=== PATIENT | male | born 1960 | race Caucasian/White ===

== ENCOUNTER → 2020-05-10 | Outpatient (CLI) | payer SELFPAY | LOC: M LABSMTC 09:41 | PROVIDERS: ATTEND Pediatrics | DX: Z20.828 Contact with and (suspected) exposure to other viral communicable diseases (principal) ==

== ENCOUNTER → 2022-07-06 | Outpatient (CLI) | payer OTHER, SELFPAY | LOC: M SOG 08:39 | PROVIDERS: ATTEND Orthopaedic Surgery | DX: M54.50 Low back pain, unspecified (principal) ==

== ENCOUNTER 2022-07-27 15:28 | Inpatient (IN) | payer OTHER ==
[~2022-07-27] VITALS: Ht 180.3 cm; Wt 98.6 kg
[2022-07-27 16:40] VITALS: BP 114/76
[2022-07-27] MEDS ORDERED: LEVALBUTEROL 1.25MG 0.5ML CONCENTRATE NEB NEB PRN (18:25)
[2022-07-27] MEDS ORDERED: ACETAMINOPHEN TAB 650MG DOSE (2X325MG) PO PRN (18:25)
[2022-07-27] MEDS ORDERED: MOM 30ML SUSPENSION UDC PO PRN (19:05)
[2022-07-27 19:19] LABS: BASO # 0.1 10^3/uL (0.0-0.2); BASO % 0.5 % (0.0-1.0); HEMATOCRIT 25.1 % (42.0-52.0); HEMOGLOBIN 8.1 g/dl (13.5-17.5); LYMPH # 0.7 10^3/uL (1.5-5.0); LYMPH % 3.3 % (24.0-44.0); MEAN CORPUSCULAR HEMOGLOBIN 29.3 pg (27.0-33.0); MEAN CORPUSCULAR HGB CONC 32.3 g/dl (32.0-36.5); MEAN CORPUSCULAR VOLUME 90.9 fl (80.0-96.0); MONO # 1.4 10^3/uL (0.0-0.8); MONO % 6.6 % (2.0-8.0); NEUTROPHILS # 16.8 10^3/uL (1.5-8.5); NEUTROPHILS % 81.6 % (36.0-66.0); PLATELET COUNT, AUTOMATED 134 10^3/uL (150-450); RED BLOOD COUNT 2.76 10^6/uL (4.30-6.10); WHITE BLOOD COUNT 20.6 10^3/uL (4.0-10.0)
[2022-07-27] MEDS ORDERED: VANCOMYCIN HCL 1,000 MG, VIAL MATE ADAPTER 1 EACH in NS 250 ML IV SCH (19:30)
[2022-07-27 19:54] LABS: ALBUMIN 2.4 G/DL (3.2-5.2); ALKALINE PHOSPHATASE 227 U/L (46-116); ALT/SGPT 27 U/L (7.0-40); AST/SGOT 43 U/L (<34); BLOOD UREA NITROGEN 49 MG/DL (9-23); CALCIUM LEVEL 9.6 MG/DL (8.3-10.6); CARBON DIOXIDE LEVEL 26 MMOL/L (20-31); CHLORIDE LEVEL 95 MMOL/L (98-107); CREATININE FOR GFR 0.89 MG/DL (0.70-1.30); GLOMERULAR FILTRATION RATE > 60.0 (>49); GLUCOSE, FASTING 103 MG/DL (74-106); POTASSIUM SERUM 4.9 MMOL/L (3.5-5.1); SODIUM LEVEL 131 MMOL/L (136-145)
[2022-07-27 20:00] VITALS: BP 120/76
[2022-07-27 20:00] LABS: INR 1.31; PROTHROMBIN TIME 16.5 SECONDS (12.5-14.5)
[2022-07-27] MEDS ORDERED: CEFEPIME HCL 1 GM in D5W MINI-BAG PLUS 50 ML IV SCH (20:00)
[2022-07-27] MEDS: LEVALBUTEROL 1.25MG 0.5ML CONCENTRATE NEB NEB SCH (20:00)
[2022-07-27 20:01] LABS: PARTIAL THROMBOPLASTIN TIME 34.3 SECONDS (24.8-34.2)
[2022-07-27] MEDS ORDERED: PANT40TA29 PO (20:12)
[2022-07-27] MEDS ORDERED: LEVO112T2 PO (20:12)
[2022-07-27] MEDS ORDERED: LIDO1PAD TOP (20:12)
[2022-07-27] MEDS ORDERED: MORP-69 PO (20:12)
[2022-07-27] MEDS ORDERED: MIRA3350 PO (20:12)
[2022-07-27] MEDS ORDERED: DEXA4TA PO (20:12)
[2022-07-27] MEDS ORDERED: MILKSUS3 PO (20:12)
[2022-07-27] MEDS ORDERED: SIMV40TA20 PO (20:12)
[2022-07-27] MEDS ORDERED: IBUP80TA PO (20:12)
[2022-07-27] MEDS ORDERED: SENN-186 PO (20:12)
[2022-07-27] MEDS ORDERED: SODI1TAB12 PO (20:12)
[2022-07-27] MEDS ORDERED: DICL1GEL3 TOP (20:12)
[2022-07-27] MEDS ORDERED: MORP15TA2 PO (20:12)
[2022-07-27] MEDS ORDERED: FLUO1OPD OU (20:12)
[2022-07-27] MEDS ORDERED: CYCL-707 PO (20:12)
[2022-07-27] MEDS ORDERED: FLUO40CA PO (20:12)
[2022-07-27 20:17] LABS: IRON (FE) 63 UG/DL (65-175); PERCENT SATURATION 22.4 % (19.7-50.0); TOTAL IRON BINDING CAPACITY 281 UG/DL (250-425)
[2022-07-27] MEDS ORDERED: HOME MED LIST COMPLETE! XX SCH (20:20)
[2022-07-27 20:23] LABS: FERRITIN 2744.3 NG/ML (10.5-307.3)
[2022-07-27 20:37] LABS: D-DIMER QUANT > 4000 ng/ml (<500)
[2022-07-27] MEDS ORDERED: NS 1,000 ML IV SCH (20:50)
[2022-07-27] MEDS: SENNA 8.6 MG TAB (SENOKOT) PO SCH (21:00)
[2022-07-27] MEDS ORDERED: MORPHINE 15 MG SA TAB PO SCH (21:00)
[2022-07-27] MEDS: DOCUSATE SODIUM 100MG CAPSULE PO SCH (21:00)
[2022-07-27] MEDS: IBUPROFEN 800 MG TAB PO SCH (21:00)
[2022-07-27] MEDS: FLUOROMETHOLONE 0.1% OPHTH SUSP 5ML BTL OU SCH (21:00)
[2022-07-27] MEDS ORDERED: SIMVASTATIN 40 MG TAB PO SCH (21:00)
[2022-07-27] MEDS: NYSTATIN 500,000U/5ML SUSP UDC SS SCH (21:21)
[2022-07-27] MEDS: MORPHINE 30 MG TAB **MSIR PO PRN (21:21)
[2022-07-27] MEDS: SODIUM CHLORIDE 1 GM TAB PO SCH (21:21)
[2022-07-27] MEDS: HEPARIN SOD (PORCINE) 5000UNITS/ML 1ML VIAL/SYRINGE SQ SCH (21:22)
[2022-07-27] MEDS: CEFEPIME HCL 1 GM in D5W MINI-BAG PLUS 50 ML IV SCH (21:22)
[2022-07-27] MEDS ORDERED: VANCOMYCIN HCL 1,000 MG, VIAL MATE ADAPTER 1 EACH in NS 250 ML IV ONE ×2 (22:00→23:00)
[2022-07-27 23:35] VITALS: BP 112/71
[2022-07-28] VITALS: BP 118/74
[2022-07-28] MEDS: MORPHINE 30 MG TAB **MSIR PO PRN ×2 (00:56→05:03)
[2022-07-28 03:27] VITALS: BP 116/83
[2022-07-28 04:00] VITALS: BP 117/72
[2022-07-28] MEDS ORDERED: VANCOMYCIN HCL 750 MG, VIAL MATE ADAPTER 1 EACH in D5W 250 ML IV SCH ×2 (05:00→06:00)
[2022-07-28 05:29] LABS: HEMOGLOBIN 8.2 g/dl (13.5-17.5); MEAN CORPUSCULAR HEMOGLOBIN 29.1 pg (27.0-33.0); MEAN CORPUSCULAR HGB CONC 31.5 g/dl (32.0-36.5); MEAN CORPUSCULAR VOLUME 92.2 fl (80.0-96.0); PLATELET COUNT, AUTOMATED 126 10^3/uL (150-450); RED BLOOD COUNT 2.82 10^6/uL (4.30-6.10); WHITE BLOOD COUNT 20.2 10^3/uL (4.0-10.0)
[2022-07-28 05:57] LABS: ALBUMIN 2.4 G/DL (3.2-5.2); ALKALINE PHOSPHATASE 228 U/L (46-116); ALT/SGPT 28 U/L (7.0-40); AST/SGOT 46 U/L (<34); BILIRUBIN,TOTAL 1.3 MG/DL (0.3-1.2); BLOOD UREA NITROGEN 50 MG/DL (9-23); CALCIUM LEVEL 9.7 MG/DL (8.3-10.6); CARBON DIOXIDE LEVEL 25 MMOL/L (20-31); CHLORIDE LEVEL 95 MMOL/L (98-107); CREATININE FOR GFR 1.04 MG/DL (0.70-1.30); GLOMERULAR FILTRATION RATE > 60.0 (>49); GLUCOSE, FASTING 88 MG/DL (74-106); POTASSIUM SERUM 4.5 MMOL/L (3.5-5.1); SODIUM LEVEL 130 MMOL/L (136-145); TOTAL PROTEIN 5.9 G/DL (5.7-8.2)
[2022-07-28] MEDS ORDERED: LEVOTHYROXINE 112MCG TABLET (0.112MG) PO SCH (06:00)
[2022-07-28 07:47] VITALS: BP 104/64
[2022-07-28] MEDS: LEVALBUTEROL 1.25MG 0.5ML CONCENTRATE NEB NEB SCH (08:00)
[2022-07-28] MEDS: SODIUM CHLORIDE 1 GM TAB PO SCH (08:24)
[2022-07-28] MEDS: IBUPROFEN 800 MG TAB PO SCH (08:25)
[2022-07-28] MEDS: DOCUSATE SODIUM 100MG CAPSULE PO SCH ×2 (08:25→20:34)
[2022-07-28] MEDS: FLUOROMETHOLONE 0.1% OPHTH SUSP 5ML BTL OU SCH ×4 (08:25→20:35)
[2022-07-28] MEDS: HEPARIN SOD (PORCINE) 5000UNITS/ML 1ML VIAL/SYRINGE SQ SCH (08:25)
[2022-07-28] MEDS: CEFEPIME HCL 1 GM in D5W MINI-BAG PLUS 50 ML IV SCH (08:25)
[2022-07-28] MEDS: MOM 30ML SUSPENSION UDC PO SCH (08:28)
[2022-07-28] MEDS: NYSTATIN 500,000U/5ML SUSP UDC SS SCH (08:28)
[2022-07-28] MEDS: LIDOCAINE 5% (LIDODERM) PATCH TOP SCH (08:28)
[2022-07-28] MEDS ORDERED: FLUoxetine 20MG CAP PO SCH (09:00)
[2022-07-28] MEDS ORDERED: MORPHINE 15 MG SA TAB PO SCH (09:00)
[2022-07-28] MEDS ORDERED: PANTOPRAZOLE 40MG TAB (PROTONIX) PO SCH (09:00)
[2022-07-28 09:29] VITALS: O2SAT 90
[2022-07-28] MEDS ORDERED: HYDROMORPHONE HCL 0.5 MG/ 0.5 ML SYRINGE IV PRN (09:30)
[2022-07-28] MEDS ORDERED: ONDANSETRON 4MG 2ML VIAL IV PRN (09:50)
[2022-07-28] MEDS ORDERED: SCOPOLAMINE 1MG TRANSDERMAL PATCH TOP PRN (09:50)
[2022-07-28] MEDS ORDERED: LORazepam 2 MG/ML 1ML VIAL IV PRN ×2 (09:50→15:55)
[2022-07-28] MEDS ORDERED: ATROPINE SULFATE 1% OPHTH SOLN 2ML BTL SL PRN (09:50)
[2022-07-28] MEDS ORDERED: KETOROLAC 30 MG/ML 1ML VIAL IV ONE (10:00)
[2022-07-28] MEDS: MORPHINE 2 MG/ML 1ML VIAL IV PRN ×5 (11:00→23:52)
[2022-07-28] MEDS ORDERED: CEFEPIME HCL 2 GM in D5W MINI-BAG PLUS 50 ML IV SCH (12:00)
[2022-07-28] MEDS: LORazepam 2 MG/ML 1ML VIAL IV PRN ×3 (17:28→23:52)
[2022-07-28] MEDS: SENNA 8.6 MG TAB (SENOKOT) PO SCH (20:35)
[2022-07-29] MEDS: LORazepam 2 MG/ML 1ML VIAL IV PRN ×3 (02:16→09:06)
[2022-07-29] MEDS: MORPHINE 2 MG/ML 1ML VIAL IV PRN ×3 (02:16→09:34)
[2022-07-29] MEDS: DOCUSATE SODIUM 100MG CAPSULE PO SCH (07:49)
[2022-07-29] MEDS: MOM 30ML SUSPENSION UDC PO SCH (07:49)
[2022-07-29] MEDS: FLUOROMETHOLONE 0.1% OPHTH SUSP 5ML BTL OU SCH (07:49)
[2022-07-29] MEDS: LIDOCAINE 5% (LIDODERM) PATCH TOP SCH (07:50)
== END 2022-07-29 09:45 | disposition expired | DRG 177 ==
LOC: M PCU 16:17
PROVIDERS: ADMIT Internal Medicine Nephrology; ATTEND Internal Medicine
DX: J15.212 Pneumonia due to Methicillin resistant Staphylococcus aureus (principal); G93.41 Metabolic encephalopathy; J96.01 Acute respiratory failure with hypoxia; C79.51 Secondary malignant neoplasm of bone; M84.48XA Pathological fracture, other site, initial encounter for fracture; B37.0 Candidal stomatitis; C79.31 Secondary malignant neoplasm of brain; C78.6 Secondary malignant neoplasm of retroperitoneum and peritoneum; C78.7 Secondary malignant neoplasm of liver and intrahepatic bile duct; C79.89 Secondary malignant neoplasm of other specified sites; N13.0 Hydronephrosis with ureteropelvic junction obstruction; R44.0 Auditory hallucinations; E46 Unspecified protein-calorie malnutrition; J70.0 Acute pulmonary manifestations due to radiation; Z51.5 Encounter for palliative care; Z66 Do not resuscitate; F41.9 Anxiety disorder, unspecified; E03.9 Hypothyroidism, unspecified; E78.5 Hyperlipidemia, unspecified; K59.00 Constipation, unspecified; R53.1 Weakness; R13.10 Dysphagia, unspecified; C80.1 Malignant (primary) neoplasm, unspecified; G89.3 Neoplasm related pain (acute) (chronic); R41.82 Altered mental status, unspecified; R44.1 Visual hallucinations; R63.4 Abnormal weight loss; Z74.01 Bed confinement status; Z79.899 Other long term (current) drug therapy; Z87.891 Personal history of nicotine dependence; Y95 Nosocomial condition

== ENCOUNTER → 2022-07-27 | Outpatient (CLI) | payer OTHER ==
[~2022-07-27] MED LIST: CYCL-707 PO; DEXA4TA PO; DICL1GEL3 TOP; FLUO1OPD OU; FLUO40CA PO; IBUP80TA PO; LEVO112T2 PO; LIDO1PAD TOP; MILKSUS3 PO; MIRA3350 PO; MORP-69 PO; MORP15TA2 PO; PANT40TA29 PO; SENN-80 PO; SIMV40TA20 PO; SODI1TAB12 PO
[2022-07-27 15:12] LABS: VENOUS BASE EXCESS 0.6 (-2.0-2.0); VENOUS HCO3 23.9 MEQ/L (23.0-27.0); VENOUS PARTIAL PRESSURE CO2 34.8 mmHg (38.0-50.0); VENOUS PARTIAL PRESSURE O2 154.8 mmHg (30.0-50.0); VENOUS PH 7.455 UNITS (7.330-7.430)
[2022-07-27 17:57] LABS: VENOUS O2 SATURATION 99.6 % (60.0-80.0)
== END ==
LOC: M ONCR 13:03
PROVIDERS: ATTEND General Practice
DX: C80.1 Malignant (primary) neoplasm, unspecified (principal); C79.51 Secondary malignant neoplasm of bone; C79.31 Secondary malignant neoplasm of brain; Z87.891 Personal history of nicotine dependence; J70.8 Respiratory conditions due to other specified external agents; R44.3 Hallucinations, unspecified
CPT/HCPCS: 36415; 82803; G0463